=== PATIENT | female | born 1960 | race Caucasian/White ===

== ENCOUNTER 2017-10-03 17:34 | Day surgery (SDC) | payer OTHER ==
[2017-10-03] MEDS ORDERED: nitroGLYCERIN DRIP* 0 MCG/0 ML BTL ONE (17:44)
[2017-10-03] MEDS ORDERED: EPINEPHrine SYR 0.1 MG/ML* (1:10,000) SYRINGE ONE (17:49)
[2017-10-03] MEDS ORDERED: Propofol* 500 MG/50 ML BTL ONE (17:55)
[2017-10-03] MEDS ORDERED: Midazolam* 1 MG/ML 5 ML VIAL (5 MG) ONE (17:55)
[2017-10-03] MEDS ORDERED: Aspirin SUPP* 300 MG ONE (18:04)
[2017-10-03] MEDS ORDERED: Heparin for STEMI(*) 5,000 UNITS/ML 1 ML VIAL IV ONE (18:13)
[2017-10-03] MEDS ORDERED: Heparin DRIP 25,000 UNITS(*) 25,000 UNITS/500 ML BAG ONE (18:13)
[2017-10-03] MEDS ORDERED: Aspirin 81 mg CHEW TAB* 81 MG TAB.CHEW ONE (18:14)
[2017-10-03] MEDS ORDERED: Ticagrelor* 90 MG TAB PO ONE (18:15)
[2017-10-03] MEDS ORDERED: fentaNYL* 50 MCG/ML 2 ML VIAL (100 MCG VIAL) ONE ×2 (18:18→19:47)
[2017-10-03] MEDS ORDERED: Lidocaine 1%* 5 ML VIAL ONE (18:19)
[2017-10-03] MEDS ORDERED: Heparin 2 UNITS/ML IVPREMIX* 3,000 ML IV ONE (18:19)
[2017-10-03] MEDS ORDERED: nitroGLYCERIN DRIP* 25,000 MCG/250 ML BTL ONE (18:19)
--- NOTE | 2017-10-03 18:29 | RAD ---
INDICATION: Endotracheal tube placement in a patient with shortness of breath. COMPARISON: None. TECHNIQUE: Single AP portable view of the chest was obtained. FINDINGS: Image quality is compromised due to the relative inferiority of a portable chest x-ray. The endotracheal tube tip is seen just below the level of the inferior margin of the clavicular heads. There is a mild degree of cardiomegaly. There are patchy densities obscuring the bilateral lungs. Visualized bones are normal for the patient's age. IMPRESSION: 1. Appropriate positioning of the endotracheal tube. 2. Chest x-ray findings could be compatible with cardiogenic pulmonary edema, pneumonitis or ARDS depending on the patient's clinical presentation.
[2017-10-03 18:34] LABS: Hematocrit 37 % (35-47); Hemoglobin 12.1 g/dl (12.0-16.0); Mean Corpuscular HGB Conc 33 g/dl (31-36); Mean Corpuscular Hemoglobin 30 pg (27-31); Mean Corpuscular Volume 91 fL (80-97); Mean Platelet Volume 8.4 um3 (7.4-10.4); Platelet Count 348 10^3/ul (150-450); Red Blood Count 4.05 10^6/ul (4.00-5.40); Red Cell Distribution Width 15 % (10.5-15); White Blood Count 19.2 10^3/ul (3.5-10.8)
[2017-10-03 18:45] VITALS: BP 97/70
[2017-10-03 18:47] LABS: INR 1.31 (0.77-1.02)
[2017-10-03] MEDS ORDERED: Propofol* 10 MG/ML 20 ML BTL IV PUSH ONE ×2 (18:49→19:11)
[2017-10-03 18:54] LABS: EGFR Non-African American 48.3 (>60)
[2017-10-03] MEDS ORDERED: Heparin 2 UNITS/ML IVPREMIX* 1,000 ML IV ONE ×4 (18:54→20:00)
[2017-10-03] MEDS ORDERED: Bivalirudin(*) 250 MG VIAL ONE (18:56)
[2017-10-03] MEDS ORDERED: Morphine INJ* 10 MG/ML 1 ML CARPUJECT ONE (19:13)
[2017-10-03 19:18] LABS: ABS Basophils 0.1 10^3/ul (0-0.2); ABS Eosinophils 0.1 10^3/ul (0-0.6); ABS Lymphocytes 5.2 10^3/ul (1.0-4.8); ABS Monocytes 1.6 10^3/ul (0-0.8); ABS Neutrophils 12.2 10^3/ul (1.5-7.7); ABS Nucleated RBC 0 10^3/ul; Eosinophil % 0.6 % (0-6); Lymphocyte % 27.1 % (25-47); Nucleated Red Blood Cells % 0.1
[2017-10-03] MEDS ORDERED: Iohexol 350 (CONTRAST) 200 ML MDV IV ONE (19:34)
[2017-10-03] MEDS ORDERED: Propofol* 200 ML ONE (20:02)
--- NOTE | 2017-10-03 20:28 | ED ---
Svitlana Brown Rebecca, scribed for Dillon Garcia MD on 10/03/17 at 1753 . 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 Per EMS, en route she refused monitor, oxygen, and any intervention. In the room during evaluation, her O2 saturation is between 48 and 57% on RA, heart rate is tachycardic, between 145 and 155 bpm, with respiratory rate between 25 and 42. Additionally notes indigestion a few hours ago which lasted about 30 minutes and traveled into the jaw. Currently, is not having any pain. When asked if she feels palpitations, pt reports so-so. Unsure if present edema is acute or chronic. SHx current smoker and she denies any PMHx. PCP is Dr. Estes. - History of Current Complaint Chief Complaint: EDChestPainROMI Hx Obtained From: Patient, EMS Onset/Duration: Lasting Hours - 1 hour, Still Present Current Severity: Severe Dyspnea At: Rest Associated Signs & Symptoms: Edema - Allergy/Home Medications Home Medications: Home Medications Unobtainable 10/03/17 [History Confirmed 10/03/17] PMH/Surg Hx/FS Hx/Imm Hx Sensory History: Denies: Hx Legally Blind EENT History: Denies: Hx Deafness Infectious Disease History: No Infectious Disease History: Denies: Traveled Outside the [place] in Last 30 Days - Family History Known Family History: Positive: Diabetes - Social History Occupation: Employed Full-time - [employer] Smoking Status (MU): Current Every Day Smoker Review of Systems Positive: Palpitations Positive: Shortness Of Breath Positive: Other - "indigestion" - resolved Positive: Edema All Other Systems Reviewed And Are Negative: Yes Physical Exam - Summary Physical Exam Summary: Appearance: On arrival, the pt is tachypneic, tachycardic and sitting bolt upright Skin: The skin is pale and diaphoretic HEENT: The head is normocephalic and atraumatic. The pupils are equal and reactive. The conjunctivae are clear and without drainage. Nares are patent and without drainage. Mouth reveals moist mucous membranes and the throat is without erythema and exudate. The external ears are intact. The ear canals are patent and without drainage. The tympanic membranes are intact. Respiratory: Coarse crackles are heard anteriorly, but posteriorly her lungs are clear to auscultation, she has slight pulmonary edema Cardiovascular: Heart is tachycardic. There is no murmur or rub auscultated. There is slight pulmonary edema Musculoskeletal: There is no back tenderness noted. Extremities are non-tender with full range of motion. There is good capillary refill. Neurological: Patient is alert and oriented to person, place and time. The patient has symmetrical motor strength in all four extremities. Psychiatric: The patient has an appropriate affect and does not exhibit any anxiety or depression. Triage Information Reviewed: Yes Vital Signs On Initial Exam: Initial Vitals Temp Pulse Resp BP Pulse Ox 95.5 F 125 26 125/105 74 10/03/17 17:44 10/03/17 17:44 10/03/17 17:44 10/03/17 17:44 10/03/17 17:44 Vital Signs Reviewed: Yes Procedures - Intubation Intubation Method: orotracheal Tube Size (cm): 7.5 Breath Sounds after Intubation: equal Intubation Complications: oral-unsuccessful attempt - Initial attempt with laryngoscope. Second attempt with Glidescope was easily obtained. Post Intubation Xray: Yes - Tube OK Diagnostics - Vital Signs Vital Signs Temp Pulse Resp BP Pulse Ox 10/03/17 17:44 95.5 F 125 26 125/105 74 - Laboratory Lab Results: Lab Results 10/03/17 10/03/17 10/03/17 Range/Units 18:25 18:25 18:25 WBC 19.2 H (3.5-10.8) 10^3/ul RBC 4.05 (4.00-5.40) 10^6/ul Hgb 12.1 (12.0-16.0) g/dl Hct 37 (35-47) % MCV 91 (80-97) fL MCH 30 (27-31) pg MCHC 33 (31-36) g/dl RDW 15 (10.5-15) % Plt Count 348 (150-450) 10^3/ul MPV 8.4 (7.4-10.4) um3 Neut % (Auto) 63.8 (38-83) % Lymph % (Auto) 27.1 (25-47) % Yancey % (Auto) 8.2 H (0-7) % Eos % (Auto) 0.6 (0-6) % Baso % (Auto) 0.3 (0-2) % Absolute Neuts (auto) 12.2 H (1.5-7.7) 10^3/ul Absolute Lymphs (auto) 5.2 H (1.0-4.8) 10^3/ul Absolute Monos (auto) 1.6 H (0-0.8) 10^3/ul Absolute Eos (auto) 0.1 (0-0.6) 10^3/ul Absolute Basos (auto) 0.1 (0-0.2) 10^3/ul Absolute Nucleated RBC 0 10^3/ul Nucleated RBC % 0.1 INR (Anticoag Therapy) 1.31 H (0.77-1.02) D-Dimer, Quantitative 960 H (Less Than 230) ng/mL Sodium 134 L (135-145) mmol/L Potassium 3.8 (3.5-5.0) mmol/L Chloride 101 (101-111) mmol/L Carbon Dioxide 15 L (22-32) mmol/L Anion Gap 18 H (2-11) mmol/L BUN 19 (6-24) mg/dL Creatinine 1.16 H (0.51-0.95) mg/dL Est GFR ( Amer) 58.5 (>60) Est GFR (Non-Af Amer) 48.3 (>60) BUN/Creatinine Ratio 16.4 (8-20) Glucose 425 H (70-100) mg/dL Lactic Acid (0.5-2.0) mmol/L Calcium 8.5 L (8.6-10.3) mg/dL Total Bilirubin 0.50 (0.2-1.0) mg/dL AST 67 H (13-39) U/L ALT 77 H (7-52) U/L Alkaline Phosphatase 137 H (34-104) U/L Troponin I 3.65 H* (<0.04) ng/mL C-Reactive Protein 81.35 H (<8.01) mg/L B-Natriuretic Peptide ( - 100) pg/mL Total Protein 6.5 (6.4-8.9) g/dL Albumin 3.3 (3.2-5.2) g/dL Globulin 3.2 (2-4) g/dL Albumin/Globulin Ratio 1.0 (1-3) 07/06/18 07/06/18 Range/Units 18:25 18:25 WBC (3.5-10.8) 10^3/ul RBC (4.00-5.40) 10^6/ul Hgb (12.0-16.0) g/dl Hct (35-47) % MCV (80-97) fL MCH (27-31) pg MCHC (31-36) g/dl RDW (10.5-15) % Plt Count (150-450) 10^3/ul MPV (7.4-10.4) um3 Neut % (Auto) (38-83) % Lymph % (Auto) (25-47) % Yancey % (Auto) (0-7) % Eos % (Auto) (0-6) % Baso % (Auto) (0-2) % Absolute Neuts (auto) (1.5-7.7) 10^3/ul Absolute Lymphs (auto) (1.0-4.8) 10^3/ul Absolute Monos (auto) (0-0.8) 10^3/ul Absolute Eos (auto) (0-0.6) 10^3/ul Absolute Basos (auto) (0-0.2) 10^3/ul Absolute Nucleated RBC 10^3/ul Nucleated RBC % INR (Anticoag Therapy) (0.77-1.02) D-Dimer, Quantitative (Less Than 230) ng/mL Sodium (135-145) mmol/L Potassium (3.5-5.0) mmol/L Chloride (101-111) mmol/L Carbon Dioxide (22-32) mmol/L Anion Gap (2-11) mmol/L BUN (6-24) mg/dL Creatinine (0.51-0.95) mg/dL Est GFR ( Amer) (>60) Est GFR (Non-Af Amer) (>60) BUN/Creatinine Ratio (8-20) Glucose (70-100) mg/dL Lactic Acid 5.7 H* (0.5-2.0) mmol/L Calcium (8.6-10.3) mg/dL Total Bilirubin (0.2-1.0) mg/dL AST (13-39) U/L ALT (7-52) U/L Alkaline Phosphatase (34-104) U/L Troponin I (<0.04) ng/mL C-Reactive Protein (<8.01) mg/L B-Natriuretic Peptide 456 H ( - 100) pg/mL Total Protein (6.4-8.9) g/dL Albumin (3.2-5.2) g/dL Globulin (2-4) g/dL Albumin/Globulin Ratio (1-3) Result Diagrams: 10/03/17 18:25 10/03/17 18:25 Lab Statement: Any lab studies that have been ordered have been reviewed, and results considered in the medical decision making process. - Radiology CXR Radiology Interpretation Completed By: Radiologist - 1. Appropriate positioning of the endotracheal tube. 2. Chest x-ray findings could be compatible with cardiogenic pulmonary edema, pneumonitis or ARDS depending on the patient's clinical presentation. Physician reviewed this report. - EKG 1754 Cardiac Rate: Tachycardia - 146 bpm EKG Interpretation: Inferior wall OK with scattered reciprocal changes Course/Dx - Course Course Of Treatment: Ms. Cedillo presented in extremis. She was tachycardic, tachypneic and clearly in distress. On the monitor she was noted to have a irregularly tachycardic rhythm, low pulse ox and hypertension. We tried to place her on 100% oxygen but she resisted. I was able to get her to hold it somewhat close to her mouth and this did improve her pulse ox significantly however it was still barely 80%. Although her lungs posteriorly sounded reasonably clear she clearly had crackles anteriorly. EKG was being obtained and a nitroglycerin drip was being hung when she suddenly began to bradycardia down and become unresponsive. An ABC alert was called at that point and CPR was started for no pulses. She was intubated and given a round of epinephrine and recovered pulses. EKG at that time shows an acute inferior OK with reciprocal changes. A STEMI alert was called. She was still hypertensive and although she has an inferior OK nitroglycerin was started tentatively. She was given STEMI medications and the STEMI team took her to the Health Support Specialist. Her labs returned with a positive troponin of 3.9 and a BNP of 500. Her chest x-ray showed pulmonary edema and an ET tube in the correct position. - Diagnoses Provider Diagnoses: Acute ST elevation myocardial infarction (STEMI) of inferior wall, Flash pulmonary edema, Cardiopulmonary arrest During the Visit The Following Alert/Code Occurred: STEMI - 1755, ABC Alert - 1747 - Physician Notifications Discussed Care of Patient With: Celso Pérez Time Discussed With Above Provider: 18:01 Instructed by Provider To: Other - On his way, wants an NG tube, urinary catheter, Haperin and 180 of Brilinta - Critical Care Time Critical Care Time: 30-74 min - 45 minutes Discharge - Sign-Out/Discharge Documenting (check all that apply): Discharge/Admit/Transfer - Admit - Discharge Plan Condition: Critical Disposition: ADMITTED TO [facility] - Billing Disposition and Condition Condition: CRITICAL Disposition: Admitted to [facility] The documentation as recorded by the Svitlana blakely Rebecca accurately reflects the service I personally performed and the decisions made by me, Dillon Garcia MD.
[2017-10-03] MEDS ORDERED: Fentanyl PCA (Continuous Infusion)* 20 ML PCA SCH (20:30)
[2017-10-03] MEDS ORDERED: fentaNYL* 50 MCG/ML 5 ML VIAL (250 MCG VIAL) ONE (21:06)
[2017-10-03] MEDS ORDERED: Norepinephrine 16MCG/ML IVPRE* 4,000 MCG/250 ML BAG IV ONE (21:07)
--- NOTE | 2017-10-03 21:39 | CONSULT ---
Consult Consult: CCM consult note Date of consult : 10/03/17 Consultation requested by: Dr Celso Pérez Reason for consult: Hypotension, airway management CC: SOB HPI: 57 y o obese f, current smoker with no other known PMHx, was brought in by EMS for SOB. Pt had indigestion 1 hr prior to presentation. Pt was found to be hypoxic, tachypneic, diaphoretic in ED. Her O2 sat was in 60s. She was able to provide minimal history. She quickly deteriorated, ABC alert was called. She was found to have STEMI and was quickly taken to laboratory development technician. She was intubated, was started on Levophed drip. She was sedated with Propofol. She was noted to have frothy secretions in ETT. Patient was seen in laboratory development technician. No other history obtained from patient. As per family, pt was c/o SOB and not feeling well when mowing lawn 3 days ago. Pt had cath showing severe MR, stents couldnot be placed. Pt had been on 30mcg of Propofol, rceived 50+50+50 cc bolus and 50+50 of Fentanyl during cath. She has been CMV with target tidal volume of 450cc, PEEP 5 , FiO2 100%. CXR showed pulm edema Active Medications Generic Name Dose Route Start Last Admin Trade Name Freq PRN Reason Stop Dose Admin Fentanyl Citrate 20 mls @ 0.5 mls/hr 10/03/17 20:30 Fentanyl Assurance Engineer* MEASUREMENT ADVISOR .change Q24H BUFFY Protocol 25 MCG/HR Vital Signs Temp Pulse Resp BP Pulse Ox 95.5 F 111 28 97/70 95 10/03/17 17:44 10/03/17 18:30 10/03/17 18:23 10/03/17 18:30 10/03/17 18:26 Laboratory Results - last 24 hr 10/03/17 10/03/17 10/03/17 18:25 18:25 18:25 WBC 19.2 H RBC 4.05 Hgb 12.1 Hct 37 MCV 91 MCH 30 MCHC 33 RDW 15 Plt Count 348 MPV 8.4 Neut % (Auto) 63.8 Lymph % (Auto) 27.1 [place] % (Auto) 8.2 H Eos % (Auto) 0.6 Baso % (Auto) 0.3 Absolute Neuts (auto) 12.2 H Absolute Lymphs (auto) 5.2 H Absolute Monos (auto) 1.6 H Absolute Eos (auto) 0.1 Absolute Basos (auto) 0.1 Absolute Nucleated RBC 0 Nucleated RBC % 0.1 INR (Anticoag Therapy) 1.31 H D-Dimer, Quantitative 960 H Sodium 134 L Potassium 3.8 Chloride 101 Carbon Dioxide 15 L Anion Gap 18 H BUN 19 Creatinine 1.16 H Est GFR ( Amer) 58.5 Est GFR (Non-Af Amer) 48.3 BUN/Creatinine Ratio 16.4 Glucose 425 H POC Glucose (mg/dL) Lactic Acid Calcium 8.5 L Total Bilirubin 0.50 AST 67 H ALT 77 H Alkaline Phosphatase 137 H Troponin I 3.65 H* C-Reactive Protein 81.35 H B-Natriuretic Peptide Total Protein 6.5 Albumin 3.3 Globulin 3.2 Albumin/Globulin Ratio 1.0 10/03/17 10/03/17 10/03/17 18:25 18:25 21:14 WBC RBC Hgb Hct MCV MCH MCHC RDW Plt Count MPV Neut % (Auto) Lymph % (Auto) [place] % (Auto) Eos % (Auto) Baso % (Auto) Absolute Neuts (auto) Absolute Lymphs (auto) Absolute Monos (auto) Absolute Eos (auto) Absolute Basos (auto) Absolute Nucleated RBC Nucleated RBC % INR (Anticoag Therapy) D-Dimer, Quantitative Sodium Potassium Chloride Carbon Dioxide Anion Gap BUN Creatinine Est GFR ( Amer) Est GFR (Non-Af Amer) BUN/Creatinine Ratio Glucose POC Glucose (mg/dL) 293 H Lactic Acid 5.7 H* Calcium Total Bilirubin AST ALT Alkaline Phosphatase Troponin I C-Reactive Protein B-Natriuretic Peptide 456 H Total Protein Albumin Globulin Albumin/Globulin Ratio O/E: Pt is sedated, was agitated until propofol was increased and Fenatnyl was administered HEENT: ETT, NGT+ Lungs: Crackles present, rhonchi + CVS: S1, S2+, tachycardic Abd: Obese, BS+ Ext: No edema Neuro: Sedated, no focal defecits as per ED physician I/R: 57 y o f presented with SOB, hypoxic, tachypneic, tachycardic, had cardiac arrest, found to have STEMI s/p cath Pt was intubated in ED for acute hypoxic resp failure sec to pulm edema 1. STEMI 2. Acute hypoxic resp failure sec to pulm edema 3. Hypotension sec to cardiogenic shock Pt had cardiac cath, found to have severe MR requiring surgical intervention [facility] Pt had intra aortic balloon pump placed Pt sedated on Propofol and Fentanyl for pain Vent mechanics acceptable, maintaining good tidal volumes O2 sat 100% 5 mg Morphine was given for pulm edema Bl sugar was 450 on arrival, rpt bl sugar at bedside 220 IVF at 50cc/hr Received Heparin, ASA, Brilinta. Pt being transferred
--- NOTE | 2017-10-04 11:32 | CONS ---
CC: Dr. Bandar Estes * EMERGENCY ROOM INTERVENTIONAL CARDIOLOGY CONSULT NOTE AND TRANSFER SUMMARY: DATE OF SERVICE: 10/03/17 CHIEF COMPLAINT: The patient is a 57-year-old female who presented to the emergency room via ambulance with severe shortness of breath. HISTORY OF PRESENT ILLNESS: The patient is a 57-year-old white female whose history was briefly obtained by the emergency room physician prior to her suffering a cardiac arrest. Information that was gleaned initially from the emergency room physician included the patient having severe shortness of breath for at least an hour prior to arrival. On further discussion with the patient, brief in nature, she commented on some indigestion a few hours ago, which lasted about only 30 minutes and traveled to the [facility]. Currently in the emergency room, she was not having any of that discomfort. She was noted to be quite tachycardic between 145 to 155 beats per minute with poor O2 saturations on room air. She stated she is a current smoker. Denied any significant past medical history and her family doctor was Dr. Estes. She rapidly deteriorated in the emergency room after the emergency room doctor examined her, her skin was pale and diaphoretic and her lungs had crackles present anteriorly, but posteriorly they thought her lungs were clear. The heart was tachycardic. There was no mention of a murmur or rub. Extremities were nontender with full range of motion. An EKG was being obtained and a nitroglycerin drip was being hung as reportedly her initial blood pressure was hypertensive. She became bradycardic and unresponsive and an ABC alert was called. They had no pulses and CPR was started. She was intubated, had epinephrine, and recovered pulses. The EKG was then performed with findings that suggested an acute inferior wall myocardial infarction with reciprocal changes and a STEMI alert was called. Her chest x-ray showed pulmonary edema. On my arrival in the emergency room, she was intubated on propofol and not communicative. I got the history that was obtained initially by Dr. Garcia. Discussion was made about proceeding emergently to the cardiovascular laboratory on this history and EKG showing the acute changes. PHYSICAL EXAM: When I saw her in the emergency room revealed, vital signs, blood pressure was in the 80s, pulse was 120s to 130s, tachycardic. She was intubated. I could not assess JVP. Carotids were difficult to appreciate due to the respirator sounds. Lungs were coarse breath sounds bilaterally. Her heart was tachycardic and there was question of a systolic murmur. Her abdomen was obese. Extremities: I did not think had significant pitting edema. Peripheral pulses were present distally. Femoral pulses were deep, but present. Neuro: She was not responding on propofol due to sedation. DIAGNOSTIC STUDIES/LAB DATA: Laboratory results were pending at the time. A bedside brief limited echocardiogram was performed, which showed severe hypo to akinesis of the inferior wall extending to the apical region. Of note, the anterior mitral valve leaflet appeared to have prolapse and was redundant in nature, but there appeared to be an eccentric jet of mitral regurgitation. In the cardiovascular laboratory, the initial images showed a totally occluded distal right coronary artery. Interestingly, there was a very faint right-to- right filling to what look a posterior left ventricular branch of the right coronary artery. The left coronary artery system had no critical stenosis seen and, from what could I tell, there appeared to be [id number] collateral flow to a PDA through the septal perforators and the distal circumflex. Left ventriculography showed severe mitral regurgitation and an ejection fraction was approximately 30% to 35%. Attempts were initially made across the total occlusion with several wires, decision was then made to interrupt the attempts to place an intraaortic balloon pump, which was placed on the left side with successful augmentation. Knowing the mitral valve had severe mitral regurgitation, efforts were then addressed to working on transporting the patient while simultaneously continuing to try to get across the totally occluded right coronary artery. Eventually, this was unsuccessful and after much effort in trying to find a hospital who had beds available or were willing to take the patient, we had a bed available through [facility]. I spoke to the intensive care physician after having spoken to Dr. Hernandez, the warrant clerk, who felt it was best to admit the patient to the intensive care unit, not directly to the warehouse general laborer for further attempts. Dr. Diana eventually was able to get a bed and as such, the patient was transported with the intraaortic balloon pump in place, augmenting well, to pressures approximately 110 to 120. The pulse had come down into the 80s to 90s. O2 saturation was 100% intubated. Of note, during the time down in the emergency room when the patient went hypotensive, a Levophed drip was started and in the warehouse general laborer, it was advanced as needed to maintain blood pressure. At the time of transfer, the Levophed drip was at 20 mcg/minute. The patient had been on an Angiomax drip that was eventually switched over to heparin drip for transport to [facility] with the intraaortic balloon pump in place. Laboratory results that came back after the patient was in the warehouse general laborer revealed a hemoglobin and hematocrit of 12.1 and 37, white count of 9200, platelet count of 348,000. BUN and creatinine were 19 and 1.16, sodium 134, potassium 3.8, chloride 101, bicarb 15. Troponin was 3.65 with a lactic acid of 5.7. A BNP of 293. Chest x-ray revealed congestive heart failure. The initial EKG was sinus tachycardia, heart rate 146. There was ST-segment elevation in II, III, aVF with small Q waves developed with minimal ST-segment depression in V2 with more prominent ST-segment depression in aVL. Repeat EKG done in the cardiovascular laboratory revealed sinus rhythm, heart rate 94. There was still ST-segment elevation seen inferiorly with reciprocal change in aVL and in V2, although less prominent degree of ST-segment elevation compared to the prior EKG. Further information gleaned after the cardiac catheterization when I was able to speak to family members who came as well, they added that the history dates back to at least 3 or 4 days prior to admission when the patient was apparently cutting her lawn and developed the acute onset of severe shortness of breath. It is uncertain whether her chest discomfort accompanied this. With the shortness of breath, the patient felt quite ill and apparently had been sick for a couple of days and had missed work and called in sick for a couple of days. Apparently, her administrative boss, when she came in on the day of presentation to the emergency room, reported her as looking blue and short of breath and summoned the ambulance. This would suggest that her infarction occurred several days ago and that more recently , she ruptured her papillary muscle producing the severe mitral regurgitation. At this point in time, further management will be under the guidance of physicians at [facility]. I have had extensive communication with Dr. Diana in addition to Dr. Gene Hernandez. I did speak to Dr. Lloyd Harrell, who was not adult secondary education instructor for Cardiothoracic Surgery, but had called me multiple times to be updated on what was going on with the case. All information was given to the physicians to try to make them a smooth transfer possible. Of note , there was significant delay in trying to transfer the patient due to both multiple centers either not accepting the patient or not having beds immediately available as well as transport as helicopter initially would not take the patient with both intubation and a balloon pump, initially telling us they needed a fixed-wing, which would take well over an hour before that could be available, with multiple further communications and eventual with [place] able to be available in a rapid fashion for transfer up to [facility]. [id number]/CPS #: [id number] MTDD
--- NOTE | 2017-10-04 13:52 | CATH ---
CARDIAC CATHETERIZATION REPORT: DATE OF PROCEDURE: 10/03/17 - [facility] CATH INDICATION FOR THE PROCEDURE: The patient with EKG suggesting acute ST segment elevation inferior posterior wall myocardial infarction with cardiac arrest with the patient intubated. PROCEDURE: Coronary arteriography, left heart catheterization, left ventriculography, intraaortic balloon pump placement, attempts at opening totally occluded distal right coronary artery. The patient was examined in the emergency room. Of note, the patient was already intubated and history was obtained from the emergency room physician. Family member was present and the necessity of proceeding to the cardiovascular laboratory was explained to the family member and they agreed with this and as such, the patient was brought to the cardiovascular laboratory. In the cardiovascular laboratory, a formal time-out was performed. The patient was prepped and draped in a sterile fashion. The right groin area was anesthetized with 1% lidocaine and the femoral artery was cannulated utilizing Seldinger technique. Laboratory results prior to cardiac catheterization pending at the time of emergent cardiac catheterization. EQUIPMENT UTILIZED: 1. Right femoral artery sheath - 6.5-Tristanian Merit's Prelude sheath. 2. Diagnostic coronary catheters FL4 and FR4 curved 5-Tristanian catheters. 3. Diagnostic wire utilized for exchanging catheter was a J-tip exchange 260 length catheter. 4. Left heart catheterization catheter with a 5-Tristanian angled pigtail catheter. 5. Guide catheter was an ART 6-Tristanian with side holes. Guide wires utilized were All Star regular length, All Star exchange length and Whisper exchange length with a [id number] 2.0 x 12 mm long balloon for support. 6. Intraaortic balloon catheter with a 30 cc Arrow RediGuard intraaortic balloon. MEDICATIONS GIVEN: 1. Levophed titrated for blood pressure control. Propofol for sedation. Fentanyl under Dr. Jonas's - hand box coverer guidance. 2. Angiomax bolus and an Angiomax drip. The patient had received 4000 units of heparin in the emergency room and 180 mg of Brilinta and an aspirin via the NG- tube. Morphine was also given as well. At the end of the case, the Angiomax drip was stopped and a heparin drip at 1000 units an hour was started. DESCRIPTION OF PROCEDURE: The patient was brought to the cardiovascular laboratory where a formal time-out was performed. She was prepped and draped in a sterile fashion. Right groin area was anesthetized with 1% lidocaine. Right femoral artery was cannulated and a Merit sheath was placed. Coronary arteriography was performed using the diagnostic catheters. Central aortic pressure was recorded using an angled pigtail catheter advanced to the ascending aorta. The catheter was then passed through the aortic valve into the left ventricle with left ventricular pressure was recorded. The left ventriculography was performed utilizing a total of 36 cc of Visipaque dye at the rate of 12 cc per second. The catheter was pulled back across the aortic valve to recheck gradient. Following this, Angiomax bolus was given after a CT was found to be subtherapeutic. Angiomax drips started and the guiding views were obtained utilizing the ART guide catheter. Attempts were made to cross the total occlusion utilizing initially the [employer] All Star regular length wire followed by the exchange length and eventually a Whisper wire with balloon support utilizing the 2.0 x 12 mm long Emerge zyqa-[id number]-qirr balloon. Following attempts at this, the decision was made to place an intraaortic balloon pump, which was placed via the left femoral artery after it was cannulated and sheath was placed. The patient was augmenting well with balloon pump. Further attempts were tried to be made to open the right coronary artery while arrangements were being made for transfer to a higher level of care center who could have option of coronary artery bypass and mitral valve replacement in light of severe mitral regurgitation. Dr. Jonas was present throughout the case for hemodynamic management as the hand box coverer and for sedation management. The total contrast used was 250 cc of Visipaque dye. The radiation exposure included 24.1 minutes of fluoro time. The air kerma radiation was 3909 mGy. The DAP radiation was 31798 microgray per meter squared. RESULTS: HEMODYNAMIC DATA: Left catheterization revealed central aortic pressure recorded at 86/61 with a mean of 71, left ventricular pressure 90 over left ventricular end diastolic pressure of 35 to 43 mmHg. (Of note, left heart catheterization was performed prior to the intraaortic balloon pump being placed ). CORONARY ARTERIOGRAPHY: A. Left coronary artery: 1. Left main. Short in nature, widely patent. 2. Left anterior descending artery. The left anterior descending artery had mild to moderate luminal irregularities, it extended supplying multiple diagonal branches and barely reached the apical region, it did not turn onto the inferior surface of the heart. The degree of luminal reduction appeared to be utmost 25% to 30%. 3. Circumflex artery - a non-dominant vessel supplying a moderate sized first obtuse marginal branch followed by a second and third bifurcating low- lying obtuse marginal branch. There were mild luminal irregularities, but no critical stenosis seen throughout this vessel. Collateral blood flow was noted through the septal perforators to what appeared to be faintly filling the PDA as well as collateral blood flow to what appeared to be a posterior left ventricular branch. B. Right coronary artery - a presumed dominant vessel of large caliber in its proximal portion appearing to be as much as 5.5 to 6 mm in its proximal segment. The mid segment then started tapering as it turned onto the inferior surface of the heart and just after turning onto the inferior surface, there was what appeared to be a complete occlusion. Of note, collateral blood flow was noted after multiple injections to faintly be filling what appeared to be a posterior left ventricular branch of the right coronary artery. Just after what appeared to be the total occlusion, there were thread-like vessels noted. Of note, given the fact that the total occlusion was in the distal portion of the right coronary artery, there were several right ventricular branches that were very thin in nature, but had JULY 3 flow in them supplying the right ventricular surface. LEFT VENTRICULOGRAPHY: Performed in the CHEEK projection revealed preservation of the anterior wall and on brief views, the apical region, the inferior wall was severely hypo to akinetic in nature and there was severe mitral regurgitation noted. There appeared to be a left atrial dilatation noted. The overall EF was estimated at 30% to 35% (closure to 35%). ATTEMPT AT INTERVENTION INTO TOTALLY OCCLUDED CORONARY ARTERY: Unsuccessful attempt to reestablish blood flow to the distal right coronary artery despite multiple wire usage with balloon catheter support. OVERALL ASSESSMENT: Severe mitral regurgitation. Moderate left ventricular systolic dysfunction with severe mitral regurgitation as described above. Significant coronary artery disease involving the right coronary artery, which most likely was a large vessel in general. Collateral blood flow was seen to some degree to the PDA and the posterior V branch via the left coronary artery as well as right to right collateral blood flow. The possibility of this not being an acute closure of the RCA, but rather subacute (days old) after further discussion with family members was raised. At this point in time, transfer to an institution that has the capability of bypass surgery and mitral valve replacement will be pursued. Of note, multiple attempts through different centers were made. Of note, [facility] eventually after some degree of time refused the case necessitating evaluation through the [facility] with both [facility] and [facility] not having intensive care units beds, but [facility] eventually making room for transfer by opening up an bed in their intensive care unit. A discussion was had with their hand box coverer, Dr. Diana in addition to Dr. Gene Hernandez, the interventionalist suction worker as well as a phone call to Dr. Alejo Harrell, who is one of their Cardiothoracic surgeons, although not the one suction worker that evening. A decision was made that the patient be sent to the intensive care unit by Dr. Hernandez after discussing the case with him. [id number]/[facility] #: [id number]
== END 2017-10-03 18:30 | disposition short-term general hospital (02) ==
LOC: ED 17:34 → CHICATH 18:30
PROVIDERS: ATTEND Internal Medicine Cardiovascular Disease
DX: I21.11 ST elevation (STEMI) myocardial infarction involving right coronary artery (principal); I46.2 Cardiac arrest due to underlying cardiac condition; I34.0 Nonrheumatic mitral (valve) insufficiency; R00.0 Tachycardia, unspecified; I50.1 Left ventricular failure, unspecified; J96.01 Acute respiratory failure with hypoxia; Z72.0 Tobacco use
CPT/HCPCS: 36415; 71045; 80053; 83605; 83880; 84484; 85025; 85347; 85379; 85610; 86140; 93005; 99285; A9270-GY; C1725; C1769; C1887; J0171; J0583; J1644; J2250; J2270; J2704; J3010